=== PATIENT | female | born 1970 | race Two or more races ===

== ENCOUNTER 2024-08-06 06:10 | Emergency (ER) | payer MEDICAID, SELFPAY ==
[2024-08-06 06:13] VITALS: BMI 27.3
[2024-08-06 06:53] VITALS: BP 111/64; PULSE 54; RESP 16; TEMP 36.8; O2SAT 95
--- NOTE | 2024-08-06 07:52 | PD.EDRME ---
Rapid Medical Screening Exam RME Arrival date/time: 08/06/24 06:10 This is a 54-year-old female that comes in with complaints of lower abdominal pain/CRAMPING. Patient feels pressure when she urinates. Patient reports she was recently diagnosed with a urinary tract infection. Patient denies any fever, nausea, vomiting, diarrhea. Patient denies any other symptoms. I have greeted and performed a focused initial assessment of this patient. Initial appropriate labs ordered at this time. A comprehensive ED assessment and evaluation of the patient and analysis of all test and completion of medical decision making process will be conducted by additional ED provider. Chief Complaint: Abdominal Pain Time Seen by Provider: 08/06/24 06:26 Vital signs: Vital Signs Temperature 98.2 F 08/06/24 06:53 Pulse Rate 54 L 08/06/24 06:53 Respiratory Rate 16 08/06/24 06:53 Blood Pressure 111/64 08/06/24 06:53 Pulse Oximetry (%) 95 08/06/24 06:53 Oxygen Delivery Method Room Air 08/06/24 06:53
[2024-08-06 08:47] LABS: Collection Type, Urine Voided
[2024-08-06 08:55] LABS: Bilirubin,Urine Negative (Negative); Blood,Urine Negative (Negative); Clarity,Urine Clear (Clear/Hazy); Color,Urine Yellow (Lt Yel-Yel); Culture Indicated,Urine Not Indicated; Glucose, Urine Negative (Negative); Ketones,Urine Negative (Negative); Leukocyte Esterase,Urine Negative (Negative); Nitrite,Urine Negative (Negative); Protein,Urine Negative (Neg - Trace); RBC,Urine 2 /hpf (0-3); Specific Gravity,Urine 1.024 (1.001-1.035); Squamous Epithelial Cell,Urine 2 /hpf (0-5); Urobilinogen,Urine Negative mg/dL (0.0-1.0); WBC,Urine 2 /hpf (0-5)
--- NOTE | 2024-08-06 09:06 | XR_ITS ---
Examination: Pelvic ultrasound, transabdominal, complete Technique: Transabdominal ultrasound of the pelvis performed using grayscale imaging Date and time of exam: July 29, 2024 0930 hrs. Indications: Pelvic pain beginning one month ago Findings: Uterus 5.7 cm endometrial stripe 0.6 cm No uterine mass Ovaries obscured by bowel gas Impression: Limited study. No uterine mass
[2024-08-06 11:31] LABS: HCG Qualitative,Urine Negative
--- NOTE | 2024-08-06 12:56 | EDNOTE_ITS ---
ED Abdominal Pain RME/HPI General Chief Complaint: Abdominal Pain Stated complaint: ABD PAIN Time seen by provider: 08/06/24 06:26 Arrival date/time: 08/06/24 06:10 This is a 54-year-old female that comes in with complaints of lower abdominal pain/CRAMPING. Patient feels pressure when she urinates. Patient reports she was recently diagnosed with a urinary tract infection. Patient denies any fever, nausea, vomiting, diarrhea. Patient denies any other symptoms. RME / HPI RME / HPI narrative: 08/06/24 06:10 This is a 54-year-old female that comes in with complaints of lower abdominal pain/CRAMPING. Patient feels pressure when she urinates. Patient reports she was recently diagnosed with a urinary tract infection. Patient denies any fever, nausea, vomiting, diarrhea. Patient denies any other symptoms. I have greeted and performed a focused initial assessment of this patient. Initial appropriate labs ordered at this time. A comprehensive ED assessment and evaluation of the patient and analysis of all test and completion of medical decision making process will be conducted by additional ED provider. Related Data Previous Rx's ?Medication ?Instructions ?Recorded diphenhydramine HCl 2 % topical 1 applicatio topical T ID PRN 01/18/18 cream itching #30 grams diphenhydramine HCl 25 mg capsule 25 mg PO TID PRN itc h #30 caps 01/18/18 (Benadryl) hydrocortisone 1 % lotion 1 applicatio topical BID PRN itch 01/18/18 (Cortisone (hydrocortisone)) #114 mL cyclobenzaprine 10 mg tablet 10 mg PO TID PRN muscle s pasm #30 08/14/20 tabs ibuprofen 800 mg tablet 800 mg PO TID PRN pain #30 t abs 08/14/20 erythromycin 5 mg/gram (0.5 %) eye 0.5 inch ophthalmic (eye) QID #3.5 07/26/23 ointment grams Allergies Allergy/AdvReac Type Severity Reaction Status Date / Time No Known Allergies Allergy Verified 08/06/24 06:19 Review of Systems Review of Systems Systems Reviewed: All systems reviewed, normal except as documented Past Medical History Past Medical History CARDIAC: Negative Cardiac Disorders, Myocardial Infarction or Congestive Heart Failure RESPIRATORY: Negative Chronic Obstructive Pulmonary Disease (COPD), Asthma, Smoking or Tobacco Use GENITOURINARY: Negative Renal Disease or Kidney Stones ENDOCRINE: Negative Diabetes Mellitus Type 1 or Diabetes Mellitus Type 2 HEMATOLOGIC: Negative Sickle Cell Disease Social History SMOKING STATUS: Never smoker SUBSTANCE USE: does not use ED Exam Narrative Physical exam: VITAL SIGNS: Reviewed. GENERAL APPEARANCE: Alert and interactive, follows commands, no acute distress, HEAD AND FACE: Non-traumatic. ENT: PERRL, conjuctiva pink and clear, eyelid no trauma, Mucous membrane moist. NECK: Supple, nontender, no nuchal rigidity. CHEST: No tenderness, no crepitus, no paradoxical movement, no retractions. LUNGS: Clear, well ventilated, symmetric, no rales, no wheezing, no rhonchi, no stridor, good breath sounds bilaterally. HEART: Regular rate, regular rhythm, no murmur, no gallops. ABDOMEN: Soft, nondistended, no guarding, nontender NEUROLOGICAL: Gross motor function intact sensory function intact, Appropriate for age. MUSCULOSKELETAL: low back nontender, full range of motion. EXTREMITIES: No redness no swelling no skin breakdown on bilateral foot and leg. Distal neurovascular status intact bilateral foot SKIN: Color pink, dry, no rash, no lacerations, no abrasions, no contusions. Course Quality Measures none Orders Category Date Time Status US pelvic complete Stat Exams 08/06/24 09:06 Completed HCG Qualitative,Urine Stat Lab 08/06/24 10:41 Completed Urinalysis, C/S if Indicated Stat Lab 08/06/24 08:15 Completed Urine Culture Stat Lab 08/06/24 08:15 Completed Vital Signs Vital signs: Vital Signs Temperature 98.2 F 08/06/24 06:53 Pulse Rate 54 L 08/06/24 06:53 Respiratory Rate 16 08/06/24 06:53 Blood Pressure 111/64 08/06/24 06:53 Pulse Oximetry (%) 95 08/06/24 06:53 Oxygen Delivery Method Room Air 08/06/24 06:53 Abdominal Pain MDM MDM Narrative MDM Narrative:: Findings: Uterus 5.7 cm endometrial stripe 0.6 cm No uterine mass Ovaries obscured by bowel gas Impression: Limited study. No uterine mass UA unremarkable. I spoke to patient at length. Patient was just treated for UTI. Patient has a physical along with a Pap smear scheduled with her primary doctor. Patient no longer complaining of pain or pressure at this time. Patient feels comfortable going home at this time. Patient states she will keep scheduled appointment for physical and Pap smear. Patient denies any vaginal bleeding, discharge, pain. Patient data External records reviewed:: [facility] previous records Clinical information provided by:: patient Social determinants that could affect healthcare access:: none Patient has the following chronic illnesses:: None How is presenting disease/condition affected by chronic disease/condition?: no chronic disease Evaluation data The following diagnostics were reviewed and interpreted by me:: lab results Lab and/or radiology exams considered but not ordered:: none Interpretation Summary: see note Medications / Prescriptions Medications or Prescriptions considered but not ordered:: none Medication administrations:: none Consultations Consultation(s) initiated? (list below): No Diagnosis Differential diagnosis abdominal pain: abdominal pain, endometriosis and other (UTI, ovarian cyst.) Most likely diagnosis given after review of the tests above:: Abdominal pain Admission Indicated Admission indicated?: not indicated Admission Request Was there a request for admission?: No Disposition Plan Disposition Plan: Discharge Discharge Attestation Discharge Attestation: The patient and all family members were given an opportunity to ask questions and understood the discharge instructions. Discharge instructions specifically effects, indications for sooner follow up or return to the emergency department, and the expected course of current diagnosis. Patient condition: Stable Discharge Plan Plan Patient Disposition: HOME (Self Care) Patient condition on transfer: Stable Prescriptions/Referrals Prescriptions/Med Rec: No Action hydrocortisone [Cortisone (hydrocortisone)] 1 % lotion 1 applicatio TOPICAL BID PRN (Reason: itch) Qty: 114 0RF diphenhydramine HCl [Benadryl] 25 mg capsule 25 mg PO TID PRN (Reason: itch) Qty: 30 0RF diphenhydramine HCl 2 % cream 1 applicatio TOPICAL TID PRN (Reason: itching) Qty: 30 0RF cyclobenzaprine 10 mg tablet 10 mg PO TID PRN (Reason: muscle spasm) Qty: 30 0RF ibuprofen 800 mg tablet 800 mg PO TID PRN (Reason: pain) Qty: 30 0RF erythromycin 5 mg/gram (0.5 %) ointment 0.5 inch ophthalmic (eye) QID Qty: 3.5 0RF Referrals: Deborah Chand MORTARMAN [Primary Care Provider] - In 1 week Problem List Clinical Impression: Abdominal pain Patient/Caregiver Discharge Instructions Discharge Activity: activity as tolerated Education Materials: Abdominal Pain Additional Instructions: Shakeel un kwan con soto medico de cabecera en las proximas 24-48 horas. Regrese a la claude de emergencias si hay evidencia de que los signos o sintomas empeoran. Print Language: [place] Stand Alone Forms: [employer] Award Info., Patient Portal Info Letter PA/DECKHAND [employer]ONGE [employer] Supervising Physician PA/DECKHAND [employer]ONGE [employer] Supervising Physician: IRMA
== END 2024-08-06 13:41 | disposition home or self-care (01) ==
PROVIDERS: Nurse Practitioner Family; Emergency Provider Emergency Medicine; PCP Nurse Practitioner Family
DX: R10.30 Lower abdominal pain, unspecified (principal)
CPT/HCPCS: 76856; 81001; 81025; 87086; 99284

== ENCOUNTER → 2024-10-06 | Outpatient (CLI) | payer MEDICAID, SELFPAY ==
--- NOTE | 2024-10-06 08:30 | XR_ITS ---
Examination: Screening digital mammography, bilateral Computer aided detection 3-D breast Tomosynthesis, bilateral Date and time of exam: 10/06/2024, 8:45 AM Comparisons: September 15, 2018 Indications: Screening Technique: Nonmagnified MLO, CC views of the breasts to been obtained, reconstructed from 3-D Tomosynthesis images. R2 computer aided detection program utilized for evaluation of suspicious masses and/or abnormal calcifications. 3-D Tomosynthesis images obtained. Technologist: Findings: The breasts are heterogeneously dense, which may obscure small masses. No evidence of abnormal masses or suspicious calcifications. Impression: BI-RADS category 1: Negative findings (within normal) Recommend 1 year follow-up mammogram
== END | disposition home or self-care (01) ==
DX: Z12.31 Encounter for screening mammogram for malignant neoplasm of breast (principal); R92.313 Mammographic fatty tissue density, bilateral breasts
CPT/HCPCS: 77063; 77067

== ENCOUNTER → 2024-11-11 | Outpatient (CLI) | payer MEDICAID, SELFPAY ==
--- NOTE | 2024-11-11 07:15 | XR_ITS ---
Examination: Abdomen sonogram, complete Date and time of exam: November 11, 2024, 0751 hrs. Indications: Epigastric pain this week. Technique: Multiple real-time grayscale transabdominal sonographic images of the abdomen have been obtained. Findings: Normal gallbladder. Normal common bile duct 0.5 cm Pancreatic head 2.2 cm Aorta not enlarged Liver 12.4 cm smooth contour Normal hepatopedal portal venous flow Patent IVC Right kidney 11.3 cm cortex 1.4 cm Left kidney 10.4 cm cortex 1.7 cm Spleen 10.0 cm Impression: Normal gallbladder Normal common bile duct Liver normal size no focal liver lesions
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
== END | disposition home or self-care (01) ==
DX: R10.2 Pelvic and perineal pain (principal); S39.83XA Other specified injuries of pelvis, initial encounter; X58.XXXA Exposure to other specified factors, initial encounter
CPT/HCPCS: 76700; 76856

== ENCOUNTER 2025-01-02 12:57 | Outpatient (AMB) | payer MEDICAID, SELFPAY ==
[2025-01-02 13:09] VITALS: BP 124/64; PULSE 58; RESP 20; TEMP 36.4; O2SAT 98; BMI 28.7
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
== END 2025-01-02 13:50 | disposition home or self-care (01) ==
PROVIDERS: Supervising Provider Surgery; Visit Provider Surgery
DX: K64.8 Other hemorrhoids (principal)
CPT/HCPCS: 99213; G0463

== ENCOUNTER 2025-01-09 08:54 | Outpatient (AMB) | payer MEDICAID, SELFPAY ==
[2025-01-09 09:10] VITALS: BP 156/76; PULSE 64; RESP 18; TEMP 36.3; O2SAT 98; BMI 28.7
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
== END 2025-01-09 09:32 | disposition home or self-care (01) ==
LOC: HODSRG 08:54
PROVIDERS: Supervising Provider Surgery; Visit Provider Surgery
DX: K64.9 Unspecified hemorrhoids (principal)
CPT/HCPCS: 99213; G0463